=== PATIENT | female | born 1980 | race Caucasian/White ===

== ENCOUNTER 2016-11-21 13:27 | Emergency (ER) | payer MEDICAID, OTHER ==
[2016-11-21 13:41] VITALS: RESP 18; O2SAT 100
[2016-11-21 14:17] LABS: RBC URINE 2 /hpf (0-3); URINE BACTERIA OCC (<OCC); URINE BILIRUBIN NEGATIVE (NEGATIVE); URINE BLOOD NEGATIVE (NEGATIVE); URINE COLOR Yellow (YELLOW); URINE GLUCOSE (UA) 3+ mg/dL (Normal); URINE KETONE TRACE mg/dL (NEGATIVE); URINE LEUKOCYTE ESTERASE NEG Leu/uL (Negative); URINE PROTEIN 1+ mg/dL (NEGATIVE); URINE UROBILINOGEN NORMAL mg/dL (0.2-1.0); WBC URINE 1 /hpf (0-5)
[2016-11-21] MEDS ORDERED: Sodium Chloride 0.9% 1,000 ML IV ONE (14:29)
[2016-11-21] MEDS ORDERED: Sodium Chloride 0.9% 1,000 ML ONE (14:38)
[2016-11-21 15:01] LABS: BASO % 0.4 % (0.0-2.0); EOS # 0.1 K/uL (0.0-0.7); EOS % 1.2 % (0.0-4.0); HEMATOCRIT 39.1 % (34.0-47.0); LYMPH # 1.8 K/uL (1.0-4.3); LYMPH % 25.8 % (20.0-40.0); MEAN CELL VOLUME 90.5 fL (81.0-99.0); MEAN CORPUSCULAR HEMOGLOBIN 30.4 pg (27.0-31.0); MEAN CORPUSCULAR HGB CONC 33.6 g/dL (33.0-37.0); MEAN PLATELET VOLUME 7.8 fL (7.2-11.7); MONO # 0.6 K/uL (0.0-0.8); MONO % 8.3 % (0.0-10.0); NRBC % 0.1 % (0.0-2.0); WHITE BLOOD COUNT 6.8 K/uL (4.8-10.8)
--- NOTE | 2016-11-21 15:05 | C.PDOC ---
Time Seen by Provider: 11/21/16 14:02 Chief Complaint (Nursing): Abdominal Pain History Per: Patient Onset/Duration Of Symptoms: Days (2), Intermittent Episodes Current Symptoms Are (Timing): Still Present Severity: Moderate Location Of Pain/Discomfort: LUQ Radiation Of Pain To:: None Quality Of Discomfort: "Pain" Associated Symptoms: Nausea, Vomiting (x1), Loss Of Appetite Exacerbating Factors: Food Alleviating Factors: None Additional History Per: Prior Records Past Medical History Reviewed: Historical Data, Nursing Documentation, Vital Signs Vital Signs: Last Vital Signs Temp 98 F 11/21/16 13:38 Pulse 74 11/21/16 13:38 Resp 18 11/21/16 13:38 BP 124/85 11/21/16 13:38 Pulse Ox 100 11/21/16 15:05 - Medical History PMH: Asthma, Diabetes, Gall Bladder Disease, HTN Surgical History: Family History: States: Unknown Family Hx - Social History Hx Tobacco Use: No Hx Alcohol Use: Yes Hx Substance Use: No (Past use of heroine) - Immunization History Hx Tetanus Toxoid Vaccination: No Hx Influenza Vaccination: Yes (2014) Hx Pneumococcal Vaccination: Yes (2014) Review Of Systems Except As Marked, All Systems Reviewed And Found Negative. Constitutional: Negative for: Fever, Weakness Cardiovascular: Negative for: Chest Pain Respiratory: Negative for: Shortness of Breath Gastrointestinal: Negative for: Diarrhea, Melena, Hematochezia, Hematemesis Genitourinary: Negative for: Dysuria Musculoskeletal: Negative for: Neck Pain, Back Pain Neurological: Negative for: Weakness, Numbness, Seizures, Altered Mental Status Physical Exam - Physical Exam Appears: Non-toxic, No Acute Distress Skin: Normal Color, Warm, Dry Head: Atraumatic, Normacephalic Eye(s): bilateral: PERRL, EOMI Neck: Normal ROM, Supple Cardiovascular: Rhythm Regular Respiratory: Normal Breath Sounds, No Accessory Muscle Use Gastrointestinal/Abdominal: Soft, Tenderness (LUQ), No Guarding, No Rebound Back: No CVA Tenderness Extremity: Normal ROM Neurological/Psych: Oriented x3, Normal Motor, Normal Sensation ED Course And Treatment - Laboratory Results Result Diagrams: 11/21/16 14:57 11/21/16 15:48 Lab Interpretation: No Acute Changes Urine POC: Negative O2 Sat by Pulse Oximetry: 100 Pulse Ox Interpretation: Normal Progress - Interventions Interventions:: Observation, Intravenous fluid - Medications Administered Intravenous: Antiemetic, H-2 violeta - Data Reviewed Data Reviewed: Lab, Old records - Patient Status Patient status: Mostly improved - Continuity of Care Discussed patient case with:: Patient, ED Nurse - Patient Plan Patient Plan: Discharge, F/U with PCP, Continue present meds Disposition Counseled Patient/Family Regarding: Studies Performed, Diagnosis, Need For Followup, Rx Given - Disposition Referrals: Maximo Jones MD [Staff Provider] - Disposition: HOME/ ROUTINE Disposition Time: 16:12 Condition: IMPROVED Additional Instructions: Drink plenty of fluids. Follow up with your doctor for further evaluation and treatment. Return to the ER if you develop fever, not tolerating fluids, bleeding, worsening of symptoms or if you have any other concerns. Prescriptions: Famotidine [Pepcid] 20 mg PO BID #30 tab Instructions: Gastritis (ED) - Clinical Impression Clinical Impression: Gastritis, LUQ abdominal pain
[2016-11-21 15:59] LABS: CHLORIDE 104 mmol/L (98-107); SODIUM 135 mmol/L (132-148)
[2016-11-21 16:00] LABS: POTASSIUM 4.8 mmol/L (3.6-5.2)
[2016-11-21 16:02] LABS: ALB/GLOB RATIO 1.1 (1.0-2.1); ALKALINE PHOSPHATASE 88 U/L (38-126); ALT/SGPT 12 U/L (9-52); AST/SGOT 33 U/L (14-36); BILIRUBIN,TOTAL 1.6 mg/dL (0.2-1.3); BLOOD UREA NITROGEN 10 mg/dL (7-17); CARBON DIOXIDE 21 mmol/L (22-30); GFR AFRICAN-AMERICAN > 60; GLUCOSE,RANDOM 87 mg/dL (65-105); TOTAL PROTEIN 8.5 g/dL (6.3-8.3)
[2016-11-21 16:03] LABS: CALCIUM 8.8 mg/dl (8.6-10.4)
[2016-11-21 16:32] VITALS: BP 122/79; PULSE 62; TEMP 97.8
== END 2016-11-21 16:35 | disposition home or self-care (01) ==
LOC: C.ER 13:27
DX: K29.70 Gastritis, unspecified, without bleeding (principal)
CPT/HCPCS: 80053; 81001; 83690; 84703; 85025; 96361; 96374; 96375; 99285; J2765; J7040

== ENCOUNTER 2017-12-08 18:22 | Emergency (ER) | payer MEDICAID ==
[2017-12-08 18:44] VITALS: O2SAT 100
[2017-12-08] MEDS ORDERED: Sodium Chloride 0.9% 1,000 ML IV ONE (19:43)
--- NOTE | 2017-12-08 19:54 | C.PDOC ---
History Of Present Illness 37 year old female presents to the ER with a complaint of vomiting and upper abdominal pain since yesterday. Patient notes she is and her LMP was 3 months ago. Denies diarrhea, dysuria, or vaginal bleeding. Chief Complaint (Nursing): Abdominal Pain History Per: Patient History/Exam Limitations: no limitations Onset/Duration Of Symptoms: Days Current Symptoms Are (Timing): Still Present Location Of Pain/Discomfort: RUQ, LUQ Radiation Of Pain To:: None Quality Of Discomfort: Unable To Describe Associated Symptoms: Vomiting. denies: Diarrhea, Urinary Symptoms Exacerbating Factors: None Alleviating Factors: None Recent travel outside of the [place]: No Abnormal Vaginal Bleeding: No Past Medical History Reviewed: Historical Data, Nursing Documentation, Vital Signs Vital Signs: Last Vital Signs Temp 98.9 F 12/08/17 22:19 Pulse 62 12/08/17 22:19 Resp 22 12/08/17 22:19 BP 124/79 12/08/17 22:19 Pulse Ox 100 12/08/17 22:46 - Medical History PMH: Asthma, Diabetes, Gall Bladder Disease, HTN Surgical History: Family History: States: Unknown Family Hx - Social History Hx Tobacco Use: No Hx Alcohol Use: Yes Hx Substance Use: No (Past use of heroin) - Immunization History Hx Tetanus Toxoid Vaccination: No Hx Influenza Vaccination: No Hx Pneumococcal Vaccination: No Review Of Systems Constitutional: Negative for: Fever, Chills Cardiovascular: Negative for: Chest Pain, Palpitations Respiratory: Negative for: Cough, Shortness of Breath Gastrointestinal: Positive for: Vomiting, Abdominal Pain. Negative for: Diarrhea Genitourinary: Negative for: Dysuria, Hematuria Physical Exam - Physical Exam Appears: Non-toxic Skin: Normal Color, Warm, Dry Head: Atraumatic, Normacephalic Eye(s): bilateral: Normal Inspection Oral Mucosa: Moist Chest: Symmetrical, No Tenderness Cardiovascular: Rhythm Regular Respiratory: Normal Breath Sounds, No Rales, No Rhonchi, No Wheezing Gastrointestinal/Abdominal: Soft, Tenderness (Bilateral upper quadrants, mild to lower quadrants), No Guarding, No Rebound Neurological/Psych: Oriented x3, Normal Speech ED Course And Treatment - Laboratory Results Result Diagrams: 12/08/17 19:56 12/08/17 19:56 O2 Sat by Pulse Oximetry: 100 (Room air) Pulse Ox Interpretation: Normal Progress Note: Blood work, abdominal US, pelvis US, and urinalysis ordered. IV fluids and zofran administered. Disposition Counseled Patient/Family Regarding: Diagnosis - Disposition Referrals: [facility] [Outside] Disposition: HOME/ ROUTINE Disposition Time: 22:44 Condition: STABLE Prescriptions: Ondansetron ODT [Zofran ODT] 1 odt PO BID PRN #6 odt PRN Reason: Nausea/Vomiting Instructions: Gallstones (DC), Nausea and Vomiting of (DC) Forms: [employer] (Tunisian) - POA Present On Arrival: None - Clinical Impression Clinical Impression: Vomiting affecting , antepartum, Gall bladder stones - Scribe Statement The provider has reviewed the documentation as recorded by the Scribjoe Hargrove All medical record entries made by the Scribe were at my direction and personally dictated by me. I have reviewed the chart and agree that the record accurately reflects my personal performance of the history, physical exam, medical decision making, and the department course for this patient. I have also personally directed, reviewed, and agree with the discharge instructions and disposition.
[2017-12-08 20:01] LABS: BASO % 0.4 % (0.0-2.0); EOS # 0.1 K/uL (0.0-0.7); EOS % 1.1 % (0.0-4.0); LYMPH # 2.6 K/uL (1.0-4.3); LYMPH % 28.1 % (20.0-40.0); MEAN CORPUSCULAR HEMOGLOBIN 28.5 pg (27.0-31.0); MEAN CORPUSCULAR HGB CONC 34.4 g/dL (33.0-37.0); MONO # 0.5 K/uL (0.0-0.8); MONO % 5.5 % (0.0-10.0); NEUT # 5.9 K/uL (1.8-7.0); NEUT % 64.9 % (50.0-75.0); NRBC % 0.1 % (0.0-2.0); RBC 3.59 Mil/uL (3.80-5.20); RED CELL DISTRIBUTION WIDTH 16.1 % (11.5-14.5); WHITE BLOOD COUNT 9.1 K/uL (4.8-10.8)
[2017-12-08 20:04] LABS: HEMOGLOBIN 10.2 g/dL (11.0-16.0); MEAN CELL VOLUME 82.8 fL (81.0-99.0)
[2017-12-08 20:07] LABS: HCG,QUALITATIVE URINE POSITIVE (NEGATIVE)
[2017-12-08 20:11] LABS: SQUAMOUS EPITHIAL 2 /hpf (0-5); URINE BACTERIA RARE (<OCC); URINE BILIRUBIN NEGATIVE (NEGATIVE); URINE BLOOD NEGATIVE (NEGATIVE); URINE CLARITY Clear (Clear); URINE GLUCOSE (UA) NORMAL (Normal); URINE LEUKOCYTE ESTERASE NEG Leu/uL (Negative); URINE PROTEIN NEGATIVE (NEGATIVE)
[2017-12-08 20:13] LABS: URINE COLOR YELLOW (YELLOW)
[2017-12-08 20:14] LABS: ALB/GLOB RATIO 1.1 (1.0-2.1); ALBUMIN 3.9 g/dL (3.5-5.0); ALT/SGPT 24 U/L (9-52); AST/SGOT 18 U/L (14-36); BLOOD UREA NITROGEN 12 mg/dL (7-17); CALCIUM 9.1 mg/dl (8.6-10.4); GFR AFRICAN-AMERICAN > 60; GFR NON-AFRICAN AMERICAN > 60; LIPASE 76 U/L (23-300)
[2017-12-08 22:21] VITALS: BP 124/79; PULSE 62; RESP 22; TEMP 98.9
--- NOTE | 2017-12-09 09:53 | US ---
HISTORY: Abdominal pain COMPARISON: None. TECHNIQUE: Grayscale imaging was performed. FINDINGS: LIVER: Measures 17.7 cm. There is mild diffuse increased echogenicity of the liver parenchyma. No mass. No intrahepatic bile duct dilatation. GALLBLADDER: There are multiple gallstones and sludge within the gallbladder. The gallbladder is partially contracted without evidence of wall thickening or pericholecystic fluid. The sonographic Don's sign is negative. COMMON BILE DUCT: Measures 4.0 mm. No stones. No dilatation. PANCREAS: Unremarkable as visualized. No mass. No ductal dilatation. RIGHT KIDNEY: Measures 11.6cm. Normal echogenicity. No calculus, mass, or hydronephrosis. LEFT KIDNEY: Measures 10.3cm. Normal echogenicity. No calculus, mass, or hydronephrosis. SPLEEN: Normal in size and contour. No mass. AORTA: No aneurysmal dilatation. IVC: Unremarkable. OTHER FINDINGS: None. IMPRESSION: Mild hepatomegaly. Diffuse increased echogenicity in the liver may reflect hepatic steatosis however parenchymal infectious/ inflammatory etiologies cannot be entirely excluded. Clinical and laboratory correlation is advised. Cholelithiasis. A preliminary report was provided by [employer] services.
--- NOTE | 2017-12-09 09:55 | US ---
PROCEDURE: OB Pelvic Ultrasound HISTORY: lower abd pain COMPARISON: None available. FINDINGS: UTERUS: Single Live intrauterine gestation. CRL measures 3.90 cm equivalent to 10 weeks and 6 days gestatioin Gestational sac diameter measures 5.73 cm equivalent to 10 weeks and 5 days gestation age (Ultrasound estimated): 11 weeks and 2 days Date of delivery (Ultrasound estimated) : 06/27/2018 Heart rate: 156 bpm. Gwen-gestational hemorrhage: None. Uterus measures 13.1 x 6.5 x 9.1 cm. No mass CERVIX: Long and closed. No cervical abnormality seen. RIGHT OVARY: Measures 3.6 x 2.3 x 3.5 cm. No mass. Normal flow. LEFT OVARY: Measures 3.5 x 2.7 x 3.0 cm. No mass. Normal flow. FREE FLUID: None. OTHER FINDINGS: None. IMPRESSION: Single live intrauterine gestation with mean gestational age of 11 weeks and 2 days. The estimated date of delivery by ultrasound is 06/27/2018. A preliminary report was provided by [employer].
== END 2017-12-08 22:45 | disposition home or self-care (01) ==
LOC: C.ER 18:22
DX: O21.9 Vomiting of pregnancy, unspecified (principal); O99.611 Diseases of the digestive system complicating pregnancy, first trimester; K80.20 Calculus of gallbladder without cholecystitis without obstruction; Z3A.11 11 weeks gestation of pregnancy

== ENCOUNTER 2018-07-28 18:02 | Inpatient (IN) | payer MEDICAID ==
--- NOTE | 2018-07-28 18:24 | C.PDOC ---
History Of Present Illness 38yo female, history of substance abuse, comes to ER for detox from heroin. Patient states she uses 15 bags IV daily and also reports she occasionally uses cocaine. Patient reports last heroin use today and last cocaine use 3 days ago. Patient does report some malaise as well as vomiting. She otherwise denies any chest pain, shortness of breath, and denies any suicidal or homicidal ideation. <Ingrid Mathews - Last Filed: 07/28/18 19:17> History Per: Patient History/Exam Limitations: no limitations Onset/Duration Of Symptoms: Days Current Symptoms Are (Timing): Still Present Associated Symptoms: denies: Suicidal Thoughts, Suicidal Plan <Ingrid Mathews - Last Filed: 07/28/18 19:17> <Shaggy Canchola - Last Filed: 07/28/18 23:51> Time Seen by Provider: 07/28/18 18:10 Chief Complaint (Nursing): Substance Abuse Past Medical History Reviewed: Historical Data, Nursing Documentation, Vital Signs - Medical History PMH: Asthma, Diabetes, Gall Bladder Disease, HTN Surgical History: Family History: States: No Known Family Hx - Social History Hx Tobacco Use: No Hx Alcohol Use: Yes Hx Substance Use: Yes (heroine and cocaine) - Immunization History Hx Tetanus Toxoid Vaccination: No Hx Influenza Vaccination: No Hx Pneumococcal Vaccination: No <Ingrid Mathews - Last Filed: 07/28/18 19:17> Vital Signs: Last Vital Signs Temp 98.2 F 07/28/18 22:13 Pulse 74 07/28/18 22:13 Resp 16 07/28/18 22:13 BP 106/65 07/28/18 22:13 Pulse Ox 98 07/28/18 22:13 <Shaggy Canchola - Last Filed: 07/28/18 23:51> Review Of Systems Except As Marked, All Systems Reviewed And Found Negative. Constitutional: Positive for: Malaise. Negative for: Fever, Chills Cardiovascular: Negative for: Chest Pain Respiratory: Negative for: Shortness of Breath Gastrointestinal: Positive for: Vomiting Neurological: Negative for: Weakness, Numbness Psych: Negative for: Suicidal ideation <Ingrid Mathews - Last Filed: 07/28/18 19:17> Physical Exam - Physical Exam Appears: No Acute Distress Skin: Normal Color, Warm, Dry Head: Atraumatic, Normacephalic Eye(s): bilateral: Normal Inspection Oral Mucosa: Moist Neck: Normal, Supple Chest: Symmetrical Cardiovascular: Rhythm Regular Respiratory: Normal Breath Sounds Gastrointestinal/Abdominal: Normal Exam, Soft, No Tenderness Back: Normal Inspection Extremity: Normal ROM Neurological/Psych: Oriented x3 <Ingrid Mathews - Last Filed: 07/28/18 19:17> ED Course And Treatment - Laboratory Results Result Diagrams: 07/28/18 18:44 07/28/18 18:44 Progress Note: Labs, urinalysis ordered. <Ingrid Mathews - Last Filed: 07/28/18 19:17> - Laboratory Results Result Diagrams: 07/28/18 18:44 07/28/18 18:44 Lab Results: Total Bilirubin 0.6 mg/dL (0.2-1.3) 07/28/18 18:44 AST 30 U/L (14-36) 07/28/18 18:44 ALT 13 U/L (9-52) 07/28/18 18:44 Alkaline Phosphatase 81 U/L (38-126) 07/28/18 18:44 Total Protein 7.8 g/dL (6.3-8.3) 07/28/18 18:44 Albumin 4.3 g/dL (3.5-5.0) 07/28/18 18:44 Globulin 3.5 gm/dL (2.2-3.9) 07/28/18 18:44 Albumin/Globulin Ratio 1.3 (1.0-2.1) 07/28/18 18:44 Urine Color Marlene (YELLOW) 07/28/18 19:29 Urine Clarity Hazy (Clear) 07/28/18 19:29 Urine pH 5.0 (5.0-8.0) 07/28/18 19:29 Ur Specific [place] 1.029 (1.003-1.030) 07/28/18 19:29 Urine Protein 2+ mg/dL (NEGATIVE) H 07/28/18 19:29 Urine Glucose (UA) Normal mg/dL (Normal) 07/28/18 19:29 Urine Ketones Negative mg/dL (NEGATIVE) 07/28/18 19:29 Urine Blood Negative (NEGATIVE) 07/28/18 19: Urine Nitrate Negative (NEGATIVE) 07/28/18 19:29 Urine Bilirubin Negative (NEGATIVE) 07/28/18 19:29 Urine Urobilinogen 2.0 mg/dL (0.2-1.0) H 07/28/18 19:29 Ur Leukocyte Esterase Neg Zi/uL (Negative) 07/28/18 19:29 Urine WBC (Auto) 2 /hpf (0-5) 07/28/18 19:29 Urine RBC (Auto) 2 /hpf (0-3) 07/28/18 19:29 Ur Squamous Epith Cells 13 /hpf (0-5) H 07/28/18 19:29 Urine Bacteria Rare (<OCC) 07/28/18 19:29 Urine HCG, Qual Positive (NEGATIVE) 07/28/18 19:29 Beta HCG, Quant 43037.00 mIU/ML 07/28/18 18:44 Urine HCG, Qual Positive (NEGATIVE) 07/28/18 19:29 <Shaggy Canchola - Last Filed: 07/28/18 23:51> Medical Decision Making Medical Decision Making: signed over @ 1900. , abuse of heroine and cocaine, pending Crisis eval pt seen and examined, calm cooperative belly benign U-tox + opiates/cocaine + QHCG c/w preg d/w Crisis @ 0000, ok to adm to detox <Shaggy Canchola - Last Filed: 07/28/18 23:51> Disposition - Disposition Disposition Time: 19:00 <Ingrid Mathews - Last Filed: 07/28/18 19:17> Doctor Will See Patient In The: Hospital Counseled Patient/Family Regarding: Studies Performed, Diagnosis <Shaggy Canchola - Last Filed: 07/28/18 23:51> - Disposition Disposition: HOSPITALIZED Condition: GOOD Forms: [facility] (Puerto Rican) - Clinical Impression Clinical Impression: Drug dependence, - 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 - Scribe Statement The provider has reviewed the documentation as recorded by the Froy Shah Provider Attestation: All medical record entries made by the Aleibe were at my direction and personally dictated by me. I have reviewed the chart and agree that the record accurately reflects my personal performance of the history, physical exam, medical decision making, and the department course for this patient. I have also personally directed, reviewed, and agree with the discharge instructions and disposition. <Ingrid Mathews - Last Filed: 07/28/18 19:17> Physician Patient Turnover Patient Signed Over To: Shaggy Canchola Handoff Comments: pending medical clearance and dipso to detox <Ingrid Mathews - Last Filed: 07/28/18 19:17>
[2018-07-28 18:48] LABS: BASO % 0.3 % (0.0-2.0); EOS # 0.1 K/uL (0.0-0.7); EOS % 1.1 % (0.0-4.0); LYMPH # 1.8 K/uL (1.0-4.3); LYMPH % 26.1 % (20.0-40.0); MEAN CORPUSCULAR HEMOGLOBIN 26.1 pg (27.0-31.0); MEAN CORPUSCULAR HGB CONC 33.1 g/dL (33.0-37.0); MEAN PLATELET VOLUME 7.7 fL (7.2-11.7); MONO # 0.3 K/uL (0.0-0.8); MONO % 4.2 % (0.0-10.0); NEUT # 4.7 K/uL (1.8-7.0); NEUT % 68.3 % (50.0-75.0); RBC 4.22 Mil/uL (3.80-5.20); RED CELL DISTRIBUTION WIDTH 18.5 % (11.5-14.5); WHITE BLOOD COUNT 6.9 K/uL (4.8-10.8)
[2018-07-28 19:02] LABS: ALB/GLOB RATIO 1.3 (1.0-2.1); ALBUMIN 4.3 g/dL (3.5-5.0); ALT/SGPT 13 U/L (9-52); AST/SGOT 30 U/L (14-36); BLOOD UREA NITROGEN 12 mg/dL (7-17); CALCIUM 8.6 mg/dl (8.6-10.4); GFR NON-AFRICAN AMERICAN > 60
[2018-07-28 19:38] LABS: SQUAMOUS EPITHIAL 13 /hpf (0-5); URINE BACTERIA RARE (<OCC); URINE BILIRUBIN NEGATIVE (NEGATIVE); URINE BLOOD NEGATIVE (NEGATIVE); URINE CLARITY Hazy (Clear); URINE COLOR Amber (YELLOW); URINE GLUCOSE (UA) NORMAL (Normal); URINE LEUKOCYTE ESTERASE NEG Leu/uL (Negative); URINE PROTEIN 2+ mg/dL (NEGATIVE)
[2018-07-28 19:48] LABS: BARBITURATES, UR NEGATIVE (NEGATIVE); BENZODIAZEPINES, UR NEGATIVE (NEGATIVE); PHENCYCLIDINE, UR NEGATIVE (NEGATIVE)
[2018-07-28 20:04] LABS: OPIATES, UR POSITIVE (NEGATIVE)
[2018-07-28] MEDS ORDERED: Potassium Chloride 10 mEq ER Tab PO STA (21:21)
[2018-07-28] MEDS ORDERED: Potassium Chloride 20 mEq/15 ml LIQ UD ONE (21:28)
[2018-07-29] MEDS ORDERED: Pneumococcal 23-Valent Vaccine IM ONE (01:11)
--- NOTE | 2018-07-29 02:09 | PCM.BM ---
<Marv Stone - Last Filed: 07/29/18 02:06> Treatment Plan Problems - Problems identified on initial assessmt Substance abuse: Opiates Date Initiated: 07/29/18 Time Initiated: 02:06 Assessment reference: NA Status: Active Treatment assets and liabiliti Patient Assests: adapts well, educated, self-reliant, ADL independent, negotiates basic needs, cognitively intact Patient Liabilities: financial problems (Unemployed), substance abuse (Heroin and crack cocaine), medical problems (Diabetes, Asthma) - Milieu Protocol Maintain good personal hygiene: daily Encourage regular showers, daily Remind patient to perform daily oral care, every shift Assist patient to perform ADL's Conduct patient checks and document Observation sheet: Q15 minutes (For safety) Maintain personal safety: every shift Educate patient to report safety concerns to staff, every shift Monitor environment for contraband/sharps Medication safety: Monitor for expected outcome, potential side effects: every shift, Assess barriers to learning: every shift, Assess readiness for medication education: every shift <Aure Allen - Last Filed: 07/31/18 14:14> - Diagnosis (1) Opioid use disorder, severe, dependence Status: Acute Interventions: 07/31/18 14:13 * Assess 7x/week regarding severity of withdrawal * Educate regarding risks, benefits, side effects and alternatives of medications * Use Motivational Interviewing for abstinence * Use CBT for relapse prevention * Medication management for withdrawal symptoms * Encourage medication assisted treatment *
[2018-07-29] MEDS ORDERED: Aluminum Hydroxide/Magnesium Hydroxide Susp (30 mL) PO PRN (12:11)
--- NOTE | 2018-07-29 18:31 | PCM.PSYCH ---
Initial Psychiatric Evaluation - Initial Psychiatric Evaluation Type of Admission: Voluntary Legal Status: Capacity Chief Complaint (in patient's own words): I want to stop using heroin and cocaine. History of Present Illness and Precipitating Events: Patient is a 38 years old, single, unemployed, female with no previous psychiatric history was admitted due to withdrawing from heroin and cocaine. Patient is about 10 weeks . Opioid: Patient started using heroin at 30 years of age, increased gradually and was using up to 15 bags of heroine daily. Last use was yesterday, 5 bags. The longest period of abstinence was 4 years from [id number]. Patient relapsed again 1-1/2 year ago. Patient has history of 2 previous detox and 2 rehabs. Cocaine: Patient started using cocaine around 30 years of age was using 2 times per week, 2 packs each time. Last used to 3 days ago. Cigarettes: Patient smokes1-1/2 pack of cigarettes daily and is requesting for nicotine patch. Patient was born in [place] and has high school graduation, not working for last 6 years. Patient is on public assistance. Never and has one 8 years old son who lives with his father. Patient lives with her boyfriend. Her height is 4 feet 11 inches and weight is 185 pounds. Current Medications: Active Medications Generic Name Dose Route Start Last Admin Trade Name Freq PRN Reason Stop Dose Admin Acetaminophen 650 mg 07/29/18 12:11 07/29/18 15:31 Tylenol 325mg Tab PO 650 mg Q4H PRN Administration Fever greater than 101 F Al Hydrox/Mg Hydrox/Simethicone 30 ml 07/29/18 12:11 Maalox 30 Ml PO TID PRN Indigestion / Heartburn Clonidine HCl 0.1 mg 07/29/18 12:11 Catapres PO Q4 PRN COWS Score More or Equal to 5 Influenza Virus Vaccine 60 mcg 07/31/18 10:00 Flucelvax Quad 9348-5856 Syr IM 07/31/18 10:01 .ONCE ONE Loperamide HCl 2 mg 07/29/18 12:18 Imodium PO Q8 PRN Diarrhea Methadone HCl 15 mg 07/30/18 10:00 Methadone PO 08/02/18 09:59 Q24H EDILSON Taper Ondansetron HCl 4 mg 07/29/18 12:11 Zofran Tab PO Q8 PRN Nausea/Vomiting Pneumococcal Polyvalent Vaccine 0.5 ml 07/31/18 10:00 Pneumovax 23 Vaccine IM 07/31/18 10:01 .ONCE ONE Past Psychiatric History - Past Psychiatric History Previous Treatment History: Inpatient Prior Psychiatric Treatment: History of 2 previous detox and 2 rehab. Nature of Treatment: 2 previous detox and 2 rehabs History of Abuse: None reported History of ETOH/Drug Use: See HPI History of Family Illness: Reported her brother has history of PTSD, anxiety and opioid use. Pertinent Medical Hx (Current Medical&Sleep Prob, Allergies): Allergies Allergy/AdvReac Type Severity Reaction Status Date / Time No Known Allergies Allergy Verified 07/28/18 18:05 Albuterol 0.083% [Albuterol Sulfate 3 Ml] 3 ml NEB PRN PRN 09/12/15 metFORMIN [glucOPHAGE] 850 mg PO BID 09/12/15 Lisinopril [Zestril] 10 mg PO DAILY 07/28/18 Asthma Hypertension Diabetes mellitus Review of Systems - Psychiatric Psychiatric: As Per HPI, Anxiety Mental Status Examination - Personal Presentation Personal Presentation: Looks stated age - Affect Affect: Other (Appropriate) - Motor Activity Motor Activity: Calm - Reliability in Providing Information Reliability in Providing Information: Fair - Speech Speech: Organized - Mood Mood: Anxious - Formal Thought Process Formal Thought Process: No Impairment - Hallucinations/Delusions Hallucinations: Other (None reported) Delusions: Other - Obsessions/Compulsions Obsessions: None Compulsions: None - Cognitive Functions Orientation: Person, Place, Situation, Time Sensorium: Alert Attention/Concentration: Attentive Abstract Thinking: [place] Estimate of Intelligence: Average Judgement: Intact, as evidence by: Insight regarding need for hospitalization Memory: Recent intact, as evidence by: Ability to recall events of the day, Remote intact, as evidenced by: Ability to recall historical events - Risk Risk: Withdrawal, Diminished functioning - Strength & Assets Inventory Strength & Assets Inventory: Cooperative - Limitations Limitations: Other (Lives with boyfriend) DSM 5 DX - DSM 5 DSM 5 Diagnosis: Opioid withdrawal Opioid use disorder severe Cocaine use disorder moderate - Recommended/Plan of Treatment Treatment Recommendations and Plan of Treatment: Patient education. Supportive therapy. CBT for relapse prevention. IN for abstinence. We will start methadone taper for opiate withdrawal symptoms. Other PRN medications. Medical consult for medication adjustment. Projected ELOS: 4-5 days Discharge Plan and Discharge Criteria: No or minimal withdrawal symptoms. Patient does not want to continue with any program even with methadone maintenance treatment program. Patient just wants to continue with meetings. - Smoking Cessation Smoking Cessation Initiated: Yes
[2018-07-31 09:58] VITALS: RESP 18
[2018-07-31] MEDS ORDERED: Influenza Vaccine 60 mcg/0.5 mL SYR (4YR UP) IM ONE (10:00)
[2018-07-31] MEDS ORDERED: Pneumococcal 23-Valent Vaccine IM ONE (10:00)
--- NOTE | 2018-07-31 14:13 | PCM.PYCHPN ---
Psychiatric Progress Note - Psychiatric Progress Note Patient seen today, length of contact: 15 min Patient Chief Complaint: ''Not good" Problems Identified/Issues Discussed: The pt is seen, chart reviewed, case is discussed with staff. The pt is compliant with medications and reports no side-effects. Symptoms are improving but needs more time to stabilize and to avoid relapse. Pt attends groups and activities. Support given, psycho-education provided. After care discussed. Medication Change: Yes (detox changes daily) Medical Record Reviewed: Yes Mental Status Examination - Cognitive Function Orientation: Person, Place, Situation, Time Memory: Intact Attention: WNL Concentration: Poor Association: WNL Fund of Knowledge: WNL - Mood Mood: Depressed, Anxious - Affect Affect: Constricted, Other (Appropriate) - Speech Speech: Appropriate - Formal Thought Process Formal Thought Process: No Impairment - Suicidal Ideation Suicidal Ideation: No - Homicidal Ideation Homicidal Ideation: No Goal/Treatment Plan - Goal/Treatment Plan Need for Continued Stay: Discharge may exacerbated symptoms, Severe functional impairment Progress Toward Problem(s) and Goals/Treatment Plan: Continue medications Support and psychoeducation daily Attend groups and activities daily Individual therapy After care planning by counselors and the team
--- NOTE | 2018-08-01 08:36 | PCM.PYCHDC ---
Mental Status Examination - Mental Status Examination Orientation: Person Discharge Summary - Discharge Note Psychiatric History (includes Medical, Family, Personal Hx): 2 previous detox and 2 rehabs Consultations:: List each consultation separately and include: 1. Reason for request. 2. Findings. 3. Follow-up Summary of Hospital Course include:: 1. Description of specific treatment plan utilized for patients during their course of treatmen. 2. Summarize the time- course for resolution of acute symptoms and/or regressed behaviors. 3. Describe issues identified and worked on during hospitalization. 4. Describe medication utilized. 5. Describe medical problems identified and treated. 6. Reassessment of suicide risk Summary of Hospital Course: She decided to go to [facility] and consider low-dose methadone maintenance until the baby is born, and then decide again. - Diagnosis (1) Opioid use disorder, severe, dependence Current Visit: Yes Status: Acute - Final Diagnosis (DSM 5) Condition upon Discharge: GOOD Disposition: HOME/ ROUTINE Follow-up Treatment Plan: Continue medications Support and psychoeducation daily Attend groups and activities daily Individual therapy After care planning by counselors and the team
[2018-08-01 09:36] VITALS: BP 120/76; PULSE 79; TEMP 98; O2SAT 99
== END 2018-08-01 10:30 | disposition home or self-care (01) | DRG 744 ==
LOC: C.ER 18:02 → C.7D 23:49
PROC: GZHZZZZ Group Psychotherapy (ICD-10-PCS; principal; 2018-07-28)
PROC: GZ56ZZZ Individual Psychotherapy, Supportive (ICD-10-PCS; 2018-07-28)
DX: F11.23 Opioid dependence with withdrawal (principal); O99.321 Drug use complicating pregnancy, first trimester; O24.911 Unspecified diabetes mellitus in pregnancy, first trimester; F17.210 Nicotine dependence, cigarettes, uncomplicated; J45.909 Unspecified asthma, uncomplicated; O16.1 Unspecified maternal hypertension, first trimester; O99.511 Diseases of the respiratory system complicating pregnancy, first trimester; Z3A.10 10 weeks gestation of pregnancy; O99.331 Smoking (tobacco) complicating pregnancy, first trimester; F14.10 Cocaine abuse, uncomplicated